=== PATIENT | female | born 1970 | race Caucasian/White ===

== ENCOUNTER 2020-08-19 15:07 | Emergency (ER) | payer OTHER ==
[~2020-08-19] VITALS: Ht 165.1 cm; Wt 88.9 kg
[2020-08-19] MEDS ORDERED: METOPROLOL SUCC50 MG PO (15:12)
== END 2020-08-19 22:06 | disposition home or self-care (01) ==
LOC: ER 15:07 → CPU-OBS 15:52 → ER 22:06
DX: I16.0 Hypertensive urgency (principal); I10 Essential (primary) hypertension; R04.0 Epistaxis
CPT/HCPCS: G0378; G0379; 93005